=== PATIENT | female | born 1990 | race Caucasian/White ===

== ENCOUNTER 2016-11-26 09:57 | Emergency (ER) | payer OTHER ==
[~2016-11-26] VITALS: Ht 154.9 cm; Wt 89.9 kg
[~2016-11-26 09:57] MED LIST: CIPR-255 PO; EFFSR150 PO; NORGTAB50 PO
[2016-11-26 10:00] VITALS: TEMP 37.3; Ht 154.9 cm; Wt 89.9 kg
[2016-11-26] MEDS ORDERED: SODIUM CHLORIDE 0.9% 1000ML 1,000 ML IV STA (10:29)
--- NOTE | 2016-11-26 10:38 | EMERGENCY ROOM VISIT NOTE ---
History Report prepared by Radha: Dusty Godinez Under the Supervision of: Dr. Jennifer Scherer D.O. First contact with patient: 10:03 Chief Complaint: VOMITING Stated Complaint: 6 WEEKS ,MIGRAINE,DIZZINESS,VOMITING Nursing Triage Summary: Pt states, "I just found out that I am . I was at work and got really dizzy. I threw up. It feels like I have a migraine, but I am not sensitive to light. I have a lot of head pressure. I went to the bathroom and have bright red vaginal bleeding. It's not spotting, but it's not normal flow either. I threw up again." Pt reports cramping "like period cramps for the past couple days, on and off." History of Present Illness The patient is a 26 year old gravid female who presents to the Emergency Room with complaints of recurrent vomiting that started today. The patient has been feeling nauseous for several days without vomiting. Today at work she became dizzy and lightheaded prior to vomiting. She had multiple episodes of vomiting today. The patient has had pelvic cramping for several days the resembles menstrual cramps. The pain does radiate to the back. The patient noticed bright- red blood on the toilet paper after urinating earlier today. There was no blood mixed in with the urine. She has not noticed bleeding since and she does not relate the bleeding to her period. The patient has experienced chills after vomiting. Her stools have been loose lately. She denies any recent fevers or blood in her stools. The patient found out she was five days ago via home test, which was confirmed by Urgent Care. She started vitamins. LNMP was October 14. The patient did have some abnormally light bleeding on October 27. P:1 A:2. The patient has a prescription for Zofran. She denies abnormally heavy lifting or strenuous activity. No recent intercourse. Patient stopped taking Effexor when she found out she was . She is scheduled to see her PCP this coming week. Source of History: patient Onset: today Position: other (GI) Quality: other (vomiting) Timing: other (persistent) Associated Symptoms: + chills, + nausea, + abdominal pain, + back pain, + diarrhea (loose), No fevers, No melena, No hematochezia Note: + vaginal bleeding Review of Systems See HPI for pertinent positives & negatives. A total of 10 systems reviewed and were otherwise negative. Past Medical & Surgical Medical Problems: (1) Anxiety (2) Depression Surgical Problems: (1) History of adenoidectomy (2) History of appendectomy (3) History of cholecystectomy Family History Patient reports no known family medical history. Social History Smoking Status: Never Smoker Alcohol Use: none Marital Status: single Housing Status: lives with family Occupation Status: student Current/Historical Medications Scheduled Ondasetron Odt (Zofran Odt), 4 MG SL Q6H Vit W/ Ferrous Fumara (), 1 TAB PO DAILY Allergies Coded Allergies: Sulfa Drugs (Verified Allergy, Severe, ANAPHYLAXIS, 05/21/16) Amoxicillin (Verified Allergy, Unknown, UNKNOWN, 05/21/16) Mustard Seed (Unverified Allergy, Unknown, HIVES, 05/21/16) Physical Exam Vital Signs Date Time Temp Pulse Resp B/P (MAP) Pulse Ox O2 Delivery O2 Flow Rate FiO2 11/26/16 13:11 76 18 126/70 97 11/26/16 11:25 80 18 103/69 100 Room Air 11/26/16 10:00 37.3 87 18 115/77 99 Room Air Physical Exam GENERAL: alert, well appearing, well nourished, no distress, non-toxic EYE EXAM: normal conjunctiva. OROPHARYNX: no exudate, no erythema, lips, buccal mucosa, and tongue normal and mucous membranes are moist NECK: supple, no nuchal rigidity, no adenopathy, non-tender LUNGS: Clear to auscultation. Normal chest wall mechanics HEART: no murmurs, S1 normal and S2 normal ABDOMEN: abdomen soft, mild central suprapubic tenderness, normo-active bowel sounds, no masses, no rebound or guarding. BACK: Back is symmetrical on inspection and there is no deformity, no midline tenderness, no CVA tenderness. SKIN: no rashes and no bruising UPPER EXTREMITIES: upper extremities are grossly normal. LOWER EXTREMITIES: No pitting edema. NEURO EXAM: Normal sensorium, cranial nerves II-XII grossly intact, normal speech, no gross weakness of arms, no gross weakness of legs. Gross sensation intact. PELVIC: Cervix is high and closed, no blood in vaginal vault, no cervical motion tenderness, no adnexal tenderness. (Performed in presence of female nurse channel account manager). Medical Decision & Procedures ER Provider Diagnostic Interpretation: Radiology results have been interpreted by the radiologist and reviewed by me. ULTRASOUND OF THE PELVIS CLINICAL HISTORY: Vaginal bleeding. Cramping. Reportedly . COMPARISON STUDY: Pelvic CT dated 10/27/2009. TECHNIQUE: Real-time, grayscale, and color flow sonography of the pelvis is performed both transabdominally and endovaginally. Images are reviewed in the transverse and longitudinal planes. FINDINGS: Uterus: The uterus is normal in size and echotexture, measuring 8.0 x 4.2 x 5.8 cm. Endometrium: Tiny cystic foci are suggested within the endometrium. The endometrium is top normal in thickness measuring up to 1.2 cm. Ovaries: The ovaries are normal in size and morphology. The right ovary measures 3.8 x 2.0 x 1.6 cm and the left ovary measures 4.1 x 1.3 x 2.7 cm. There are tiny ovarian follicles. Normal Doppler waveforms are shown within both ovaries. Pelvis: There is no free fluid in the cul-de-sac. No concerning adnexal lesion is seen. IMPRESSION: 1. No intrauterine gestation is identified. This could simply reflect an intrauterine gestation that is too small to visualize or a missed . Although there is no concerning adnexal lesion identified, in the setting of a positive test without a confirmed intrauterine gestation ectopic would be impossible to exclude. Close clinical, laboratory, and sonographic follow-up is recommended. 2. The ovaries are normal in appearance. Electronically signed by: Oscar Eduardo M.D. 11/26/2016 12:03 PM Dictated Date/Time: 11/26/2016 11:59 AM Laboratory Results 11/26/16 10:40 Red Blood Count 4.46, Mean Corpuscular Volume 84.5, Mean Corpuscular Hemoglobin 29.4, Mean Corpuscular Hemoglobin Concent 34.7, Mean Platelet Volume 10.3, Neutrophils (%) (Auto) 58.6, Lymphocytes (%) (Auto) 34.5, Monocytes (%) (Auto) 6.7, Eosinophils (%) (Auto) 0.0, Basophils (%) (Auto) 0.0, Neutrophils # (Auto) 3.39, Lymphocytes # (Auto) 2.00, Monocytes # (Auto) 0.39, Eosinophils # (Auto) 0.00, Basophils # (Auto) 0.00 11/26/16 10:40 Test 11/26/16 10:40 11/26/16 10:45 White Blood Count 5.79 K/uL (4.8-10.8) Red Blood Count 4.46 M/uL (4.2-5.4) Hemoglobin 13.1 g/dL (12.0-16.0) Hematocrit 37.7 % (37-47) Mean Corpuscular Volume 84.5 fL (80-100) Mean Corpuscular Hemoglobin 29.4 pg (25-34) Mean Corpuscular Hemoglobin Concent 34.7 g/dl (32-36) Platelet Count 264 K/uL (130-400) Mean Platelet Volume 10.3 fL (7.4-10.4) Neutrophils (%) (Auto) 58.6 % Lymphocytes (%) (Auto) 34.5 % Monocytes (%) (Auto) 6.7 % Eosinophils (%) (Auto) 0.0 % Basophils (%) (Auto) 0.0 % Neutrophils # (Auto) 3.39 K/uL (1.4-6.5) Lymphocytes # (Auto) 2.00 K/uL (1.2-3.4) Monocytes # (Auto) 0.39 K/uL (0.11-0.59) Eosinophils # (Auto) 0.00 K/uL (0-0.5) Basophils # (Auto) 0.00 K/uL (0-0.2) RDW Standard Deviation 39.6 fL (36.4-46.3) RDW Coefficient of Variation 12.9 % (11.5-14.5) Immature Granulocyte % (Auto) 0.2 % Immature Granulocyte # (Auto) 0.01 K/uL (0.00-0.02) Anion Gap 7.0 mmol/L (3-11) Est Creatinine Clear Calc Drug Dose 114.9 ml/min Estimated GFR () 125.3 Estimated GFR (Non- 108.1 BUN/Creatinine Ratio 12.3 (10-20) Calcium Level 8.4 mg/dl (8.5-10.1) Human Chorionic Gonadotropin, Quant 140 mIU/mL Urine Color YELLOW Urine Appearance CLEAR (CLEAR) Urine pH 6.5 (4.5-7.5) Urine Specific [place] 1.016 (1.000-1.030) Urine Protein NEG (NEG) Urine Glucose (UA) NEG (NEG) Urine Ketones NEG (NEG) Urine Occult Blood NEG (NEG) Urine Nitrite NEG (NEG) Urine Bilirubin NEG (NEG) Urine Urobilinogen NEG (NEG) Urine Leukocyte Esterase NEG (NEG) Laboratory results per my review. Medications Administered Medications (Trade) Dose Ordered Sig/Emil Route Start Time Stop Time Status Last Admin Dose Admin Sodium Chloride 1,000 ml @ 999 mls/hr Q1H1M STAT IV 11/26/16 10:29 11/26/16 11:29 DC 11/26/16 10:29 999 MLS/HR Acetaminophen (Tylenol Tab) 1,000 mg NOW STAT PO 11/26/16 11:07 11/26/16 11:08 DC 11/26/16 11:23 1,000 MG Ondansetron HCl (Zofran Inj) 4 mg NOW STAT IV 11/26/16 11:07 11/26/16 11:08 DC 11/26/16 11:22 4 MG ED Course 1020: The patient was evaluated in room A12b. A complete history and physical exam was performed. 1029: NSS 1000 ml @ 999 mls/hr. 1107: Zofran 4 mg IV, Tylenol 1000 mg PO. 1233: Updated the patient. Her pain is better. She has only noticed blood when she wipes. 1255: Pelvic examination performed. Please see physical exam section. 1305: Discussed the discharge instructions with her. She verbalized understanding and agreement. The patient is ready for discharge. Medical Decision Differential diagnosis: Etiologies such as threatened ab, ectopic , dysfunction uterine bleeding, bleeding dyscrasia, trauma, infection, as well as others were entertained. Blood pressure screening: Patient was found to have normal blood pressure on screening and does not require follow-up. Medication Reconciliation: I attest that I have personally reviewed the patient' s current medication list. Pt well appearing here, not orthostatic, very low HCG and inconsistent for dates based on LMP. Pt with hx of spontaneous ab and aware that her bleeding/ cramping could be related to this again. No need for rhogam, stable H/H. Discussed with pt close f/u for repeat hcg and call to imaging manager for sooner appt to f/u hcg this . Discussed sx to watch/return for, she verbalized understanding and was agreeable with plan. No continued bleeding in ER, no vomiting, pain improved with IVF and tylenol. Pt aware of all results. Impression Primary Impression: Threatened Additional Impressions: Vaginal bleeding before 22 weeks gestation Scribe Attestation The scribe's documentation has been prepared under my direction and personally reviewed by me in its entirety. I confirm that the note above accurately reflects all work, treatment, procedures, and medical decision making performed by me. Departure Information Dispostion Home / Self-Care Prescriptions Ondasetron Odt (ZOFRAN ODT) 4 Mg Tab 4 MG SL Q6H for Nausea, #20 TAB Prov: Jennifer Scherer, 11/26/16 Referrals Jennifer. Miramontes E. PA-C (PCP) Forms HOME CARE DOCUMENTATION FORM, IMPORTANT VISIT INFORMATION, Work Instructions Patient Instructions [facility] Additional Instructions Please keep your appointment with your family doctor for this week, but call and follow-up with RN MANAGED CARE this week as well. You need to have a repeat hormone level done in 48-72 hours. If you develop any increased bleeding, increased cramping or pain, develop dizziness, vomiting, fevers, or you have any other new or concerning symptoms, please return the emergency room. Please avoid any heavy lifting or moving or stiffness activity, drink plenty of water, you may use Tylenol for pain, and continue using your Zofran for any associated nausea. Problem Qualifiers Additional Impressions: Weeks of gestation: less than 8 weeks Qualified Codes: Z3A.01 - Less than 8 weeks gestation of
[2016-11-26 10:53] LABS: COMPLETE YES; HEMATOCRIT 37.7 % (37-47); IG% 0.2 %; LYMPH % 34.5 %; MEAN CELL VOLUME 84.5 fL (80-100); MEAN CORPUSCULAR HEMOGLOBIN 29.4 pg (25-34); MEAN CORPUSCULAR HGB CONC 34.7 g/dl (32-36); MEAN PLATELET VOLUME 10.3 fL (7.4-10.4); MONO % 6.7 %; NEUT % 58.6 %; PLATELET COUNT 264 K/uL (130-400); RED BLOOD COUNT 4.46 M/uL (4.2-5.4); WHITE BLOOD COUNT 5.79 K/uL (4.8-10.8)
[2016-11-26] MEDS ORDERED: PREN1TAB29 PO (10:53)
[2016-11-26 11:05] LABS: URINE APPEARANCE CLEAR (CLEAR); URINE BILIRUBIN NEG (NEG); URINE COLOR YELLOW; URINE NITRITE NEG (NEG); URINE PH 6.5 (4.5-7.5); URINE SPECIFIC GRAVITY 1.016 (1.000-1.030); UROBILINOGEN NEG (NEG); ZZUR CULT IF INDIC CLEAN CATCH NO
[2016-11-26] MEDS ORDERED: ACETAMINOPHEN 500 MG TAB PO STA (11:07)
[2016-11-26] MEDS ORDERED: ONDANSETRON INJ 2 MG/ML 2 ML VIAL IV STA (11:07)
[2016-11-26 11:09] LABS: MANUAL MICROSCOPIC REQUIRED? NO; REVIEW REQ? NO
[2016-11-26 11:12] LABS: BUN/CREATININE RATIO 12.3 (10-20); CALCIUM 8.4 mg/dl (8.5-10.1); CREATININE 0.77 mg/dl (0.60-1.20); POTASSIUM 3.8 mmol/L (3.5-5.1)
--- NOTE | 2016-11-26 12:05 | DIAGNOSTIC IMAGING REPORT ---
ULTRASOUND OF THE PELVIS CLINICAL HISTORY: Vaginal bleeding. Cramping. Reportedly . COMPARISON STUDY: Pelvic CT dated 10/27/2009. TECHNIQUE: Real-time, grayscale, and color flow sonography of the pelvis is performed both transabdominally and endovaginally. Images are reviewed in the transverse and longitudinal planes. FINDINGS: Uterus: The uterus is normal in size and echotexture, measuring 8.0 x 4.2 x 5.8 cm. Endometrium: Tiny cystic foci are suggested within the endometrium. The endometrium is top normal in thickness measuring up to 1.2 cm. Ovaries: The ovaries are normal in size and morphology. The right ovary measures 3.8 x 2.0 x 1.6 cm and the left ovary measures 4.1 x 1.3 x 2.7 cm. There are tiny ovarian follicles. Normal Doppler waveforms are shown within both ovaries. Pelvis: There is no free fluid in the cul-de-sac. No concerning adnexal lesion is seen. IMPRESSION: 1. No intrauterine gestation is identified. This could simply reflect an intrauterine gestation that is too small to visualize or a missed . Although there is no concerning adnexal lesion identified, in the setting of a positive test without a confirmed intrauterine gestation ectopic would be impossible to exclude. Close clinical, laboratory, and sonographic follow-up is recommended. 2. The ovaries are normal in appearance. Electronically signed by: Oscar Eduardo M.D. 11/26/2016 12:03 PM Dictated Date/Time: 11/26/2016 11:59 AM
[2016-11-26] MEDS ORDERED: ONDA4TAB10 SL (13:09)
[2016-11-26 13:11] VITALS: BP 126/70; PULSE 76; O2SAT 97
== END 2016-11-26 13:12 | disposition home or self-care (01) ==
LOC: C.EDB 09:59 → C.EDA 13:12
DX: O20.0 Threatened abortion (principal); Z3A.01 Less than 8 weeks gestation of pregnancy; O99.341 Other mental disorders complicating pregnancy, first trimester; F41.9 Anxiety disorder, unspecified; F32.9 Major depressive disorder, single episode, unspecified; Z79.899 Other long term (current) drug therapy

== ENCOUNTER → 2016-11-28 | Outpatient (CLI) | payer OTHER ==
[~2016-11-28] MED LIST changes: +CEPH-571 PO; -CIPR-255 PO; -EFFSR150 PO; -NORGTAB50 PO; +ONDA4TAB10 SL; +PREN1TAB29 PO
== END | disposition home or self-care (01) ==
LOC: C.LAB 10:42
PROVIDERS: ATTEND Obstetrics & Gynecology
DX: O20.0 Threatened abortion (principal)

== ENCOUNTER → 2016-12-11 | Outpatient (CLI) | payer OTHER | END | disposition home or self-care (01) | LOC: C.LAB 13:50 | PROVIDERS: ATTEND Obstetrics & Gynecology | DX: O02.1 Missed abortion (principal) ==

== ENCOUNTER 2017-03-22 09:31 | Emergency (ER) | payer OTHER ==
[~2017-03-22] VITALS: Ht 152.4 cm; Wt 84.4 kg
[~2017-03-22 09:31] MED LIST changes: -CEPH-571 PO
[2017-03-22 09:36] VITALS: TEMP 36.8; Ht 152.4 cm; Wt 84.4 kg
--- NOTE | 2017-03-22 10:46 | EMERGENCY ROOM VISIT NOTE ---
History Report prepared by Radha: eTjinder Matthews Under the Supervision of: Dr. Jennifer Scherer D.O. First contact with patient: 10:06 Chief Complaint: BACK PAIN Stated Complaint: SEVERE BACK PAIN, HEAVY BLEEDING/CRAMPING/VOMITING History of Present Illness The patient is a 26 year old female who presents to the Emergency Room with complaints of worsening back pain that started 3 nights ago. She says that she was told that she pulled a muscle in her back a month ago, and has had back pain for a month now. The patient says that the pain is worse on the left side and the middle. She notes that she gets some numbness and tingling across the top of her buttock when laying down. The patient was given Naproxen and a muscle relaxer by her doctor, and has been taking those medications whenever the pain gets really bad. She says that 3 nights ago, she had worsening back pain and she could not sleep due to the pain. The patient states that she took the medications, and went back to sleep, but she woke up the next morning with the "worst period ever", with very heavy bleeding. She notes that the period was a couple days early, but the bleeding weened up a bit during that day. The patient adds that she still has been having the back pain, and her abdominal cramping for the period has been much worse than her normal period cramping. She notes that the cramping almost moves her to tears, and is worse upon waking in the morning. The patient says that if she lays still for too long, and then gets up to move, she has worsened pain. She states that the abdominal pain has been intermittent, but back pain has been constant. The patient says that she noticed a heavier flow last night, and felt sick. She notes that she has been feeling nauseous for 2 days, and that is not usually associated with her period. The patient adds that she felt feverish last night, and tried to eat last night but vomited it all up. She notes that it has been harder to have a bowel movement, and not much is there, and she has not had any changes in her diet recently. The patient says that she has been trying to keep up with her fluids but has not been urinating as much as normal. She has been taking Tylenol , Aleve, and Motrin. 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 She had a miscarriage in November, and ever since then her periods have been on time and normal. She notes that she had pre-cancerous cells in her cervix in high school. She adds that last week, she had some episodes of sharp chest pain. Source of History: patient Onset: 3 nights ago Position: back (worse in middle and left) Symptom Intensity: so bad that cannot sleep sometimes Timing: worsening Modifying Factors (Worsening): movement Associated Symptoms: + nausea, + vomiting, + abdominal pain, + urinary symptoms (decreased frequency), + numbness (and tingling above buttock) Note: Associated symptoms: Episodes of heavier menstrual bleeding than normal. [place] feverish last night. Harder to have bowel movement lately. Review of Systems See HPI for pertinent positives & negatives. A total of 10 systems reviewed and were otherwise negative. Past Medical & Surgical Medical Problems: (1) Anxiety (2) Depression Surgical Problems: (1) History of adenoidectomy (2) History of appendectomy (3) History of cholecystectomy Family History Patient reports no known family medical history. Social History Smoking Status: Former Smoker Alcohol Use: none Marital Status: single Housing Status: lives with family Occupation Status: student Current/Historical Medications Scheduled Cephalexin (Keflex), 1 CAP PO BID Allergies Coded Allergies: Sulfa Drugs (Verified Allergy, Severe, ANAPHYLAXIS, 05/21/16) Amoxicillin (Verified Allergy, Unknown, UNKNOWN, 05/21/16) Mustard Seed (Unverified Allergy, Unknown, HIVES, 05/21/16) Physical Exam Vital Signs Date Time Temp Pulse Resp B/P (MAP) Pulse Ox O2 Delivery O2 Flow Rate FiO2 03/22/17 16:55 57 18 104/55 100 Room Air 03/22/17 15:28 60 18 101/52 98 Room Air 03/22/17 13:18 78 18 107/61 100 Room Air 03/22/17 11:11 61 16 98/57 99 Room Air 03/22/17 09:36 36.8 78 18 113/78 95 Room Air Physical Exam GENERAL: alert, anxious appearing, well nourished, no distress, non-toxic EYE EXAM: normal conjunctiva, PERRL and EOM's grossly intact OROPHARYNX: no exudate, no erythema, lips, buccal mucosa, and tongue normal and mucous membranes are moist NECK: supple, no nuchal rigidity, no adenopathy, non-tender LUNGS: Clear to auscultation. Normal chest wall mechanics HEART: no murmurs, S1 normal and S2 normal ABDOMEN: abdomen soft, non-tender, normo-active bowel sounds, no masses, no rebound or guarding. BACK: Back is symmetrical on inspection and there is no deformity, no midline tenderness, no CVA tenderness. SKIN: no rashes and no bruising UPPER EXTREMITIES: upper extremities are grossly normal. LOWER EXTREMITIES: No pitting edema. NEURO EXAM: Normal sensorium, cranial nerves II-XII grossly intact, normal speech, no gross weakness of arms, no gross weakness of legs. No drift. Finger to nose intact. Gross sensation intact. Medical Decision & Procedures ER Provider Diagnostic Interpretation: US:Per my review, radiologist interpretation. (RENAL)RETROPERITONEA COMP HISTORY: Pain. Nausea. back pain, uti COMPARISON: 11/26/2016 FINDINGS: Right kidney: Maximum dimension 12.0 cm. Extrarenal pelvis. No evidence for hydronephrosis. Normal corticomedullary differentiation and cortical thickness. Left kidney: Maximum dimension 12.7 cm. No evidence for hydronephrosis. Normal corticomedullary differentiation and cortical thickness. Bladder: No bladder wall thickening. The bilateral ureteral jets were identified. IMPRESSION: Negative study The above report was generated using voice recognition software. It may contain grammatical, syntax or spelling errors. Electronically signed by: Fransisco Amezquita M.D. 03/22/2017 2:53 PM Dictated Date/Time: 03/22/2017 2:52 PM Laboratory Results 03/22/17 11:02 Red Blood Count 4.45, Mean Corpuscular Volume 83.8, Mean Corpuscular Hemoglobin 29.9, Mean Corpuscular Hemoglobin Concent 35.7, Mean Platelet Volume 10.7, Neutrophils (%) (Auto) 62.0, Lymphocytes (%) (Auto) 31.3, Monocytes (%) (Auto) 6.0, Eosinophils (%) (Auto) 0.3, Basophils (%) (Auto) 0.2, Neutrophils # (Auto) 3.95, Lymphocytes # (Auto) 1.99, Monocytes # (Auto) 0.38, Eosinophils # (Auto) 0.02, Basophils # (Auto) 0.01 03/22/17 11:02 Test 03/22/17 10:20 03/22/17 11:02 Urine Color RED Urine Appearance SL CLOUDY (CLEAR) Urine pH 6.5 (4.5-7.5) Urine Specific [place] 1.025 (1.000-1.030) Urine Protein 2+ (NEG) Urine Glucose (UA) NEG (NEG) Urine Ketones NEG (NEG) Urine Occult Blood 3+ (NEG) Urine Nitrite NEG (NEG) Urine Bilirubin NEG (NEG) Urine Urobilinogen NEG (NEG) Urine Leukocyte Esterase NEG (NEG) Urine RBC >30 /hpf (0-4) Urine WBC 5-10 /hpf (0-5) Urine Epithelial Cells 10-20 /lpf (0-5) Urine Bacteria 2+ (NEG) Urine Hyaline Casts 1-5 /lpf (0-5) Urine Mucus PRESENT (NONE PRSENT) White Blood Count 6.36 K/uL (4.8-10.8) Red Blood Count 4.45 M/uL (4.2-5.4) Hemoglobin 13.3 g/dL (12.0-16.0) Hematocrit 37.3 % (37-47) Mean Corpuscular Volume 83.8 fL (80-100) Mean Corpuscular Hemoglobin 29.9 pg (25-34) Mean Corpuscular Hemoglobin Concent 35.7 g/dl (32-36) Platelet Count 232 K/uL (130-400) Mean Platelet Volume 10.7 fL (7.4-10.4) Neutrophils (%) (Auto) 62.0 % Lymphocytes (%) (Auto) 31.3 % Monocytes (%) (Auto) 6.0 % Eosinophils (%) (Auto) 0.3 % Basophils (%) (Auto) 0.2 % Neutrophils # (Auto) 3.95 K/uL (1.4-6.5) Lymphocytes # (Auto) 1.99 K/uL (1.2-3.4) Monocytes # (Auto) 0.38 K/uL (0.11-0.59) Eosinophils # (Auto) 0.02 K/uL (0-0.5) Basophils # (Auto) 0.01 K/uL (0-0.2) RDW Standard Deviation 39.6 fL (36.4-46.3) RDW Coefficient of Variation 13.0 % (11.5-14.5) Immature Granulocyte % (Auto) 0.2 % Immature Granulocyte # (Auto) 0.01 K/uL (0.00-0.02) Anion Gap 7.0 mmol/L (3-11) Est Creatinine Clear Calc Drug Dose 102.0 ml/min Estimated GFR () 116.1 Estimated GFR (Non- 100.2 BUN/Creatinine Ratio 9.1 (10-20) Calcium Level 8.4 mg/dl (8.5-10.1) Human Chorionic Gonadotropin, Qual NEG (NEG) Laboratory results per my review. Medications Administered Medications (Trade) Dose Ordered Sig/Emil Route Start Time Stop Time Status Last Admin Dose Admin Ketorolac Tromethamine (Toradol Inj) 30 mg NOW STAT IV 03/22/17 10:51 03/22/17 10:53 DC 03/22/17 11:10 30 MG Sodium Chloride 1,000 ml @ 999 mls/hr Q1H1M STAT IV 03/22/17 10:51 03/22/17 11:51 DC 03/22/17 11:09 999 MLS/HR Lidocaine (Lidoderm Patch 5%) 1 patch NOW STAT TD 03/22/17 10:51 03/22/17 10:53 DC 03/22/17 11:11 1 PATCH Ceftriaxone Sodium (Rocephin Inj) 1 gm NOW STAT IV 03/22/17 13:41 03/22/17 13:42 DC 03/22/17 14:02 1 GM Tramadol HCl (Ultram Home Pack) 1 homepack UD ONCE PO 03/22/17 16:45 03/22/17 16:46 DC 03/22/17 16:54 1 HOMEPACK Ketorolac Tromethamine (Toradol Inj) 30 mg NOW STAT IV 03/22/17 16:32 03/22/17 16:33 DC 03/22/17 16:53 30 MG ED Course 1032: The patient was evaluated in room B3B. A complete history and physical exam was performed. 1051: Ordered Lidoderm Patch 5% 1 patch TD, NSS 1000 ml @ 999 mls/hr IV, Toradol Inj 30 mg IV. 1341: Ordered Rocephin Inj 1 gm IV. 1343: I reevaluated and updated the patient. 1507: The patient is at ultrasound. 1620: Upon reevaluation, the patient is feeling better. I discussed the findings and the treatment plan with the patient. She verbalizes agreement and understanding. She will be discharged home. 1645: Ordered Ultram Home Pack 1 homepack PO. Medical Decision Differential diagnoses includes but is not limited to gastritis, peptic ulcer disease, GERD, gallbladder disease, pancreatitis, small bowel obstruction, acute coronary syndrome, pericarditis, ischemic bowel, irritable bowel disease, irritable bowel syndrome, appendicitis, diverticulitis, malignancy, hernia, urinary tract infection, torsion, /ectopic (if female), perforation, trauma, infectious. Back pain more likely musculoskeletal, doubt acute spinal pathology including cauda equina, acute disc herniation, discitis, epidural abscess or hematoma. Doubt pyelonephritis given lack of other physical exam findings and reassuring labs. Patient with possible UTI, although some skewing of analysis due to recent cessation of menstrual cycle. Increased suprapubic and lower abdominal discomfort could be related to early UTI as well. Doubt bacteremia/sepsis. Patient with no other history of [employer]IST[employer] pathology. Patient did have a recent pelvic ultrasound which was reported to her as normal following a recent miscarriage. No known history of uterine fibroids, endometriosis, ovarian cysts. Patient's story not consistent with torsion, no new partners to suggest STD or PID. Possible atypical menstrual cycle with menorrhagia and worsening dysmenorrhea. Patient improved here phone IV fluids and Toradol. Lidoderm patch and also. Discussed with patient follow-up with family doctor, follow up with [employer], symptoms to watch and return for, she verbalized understanding and was agreeable with plan. Medication Reconcilliation Current Medication List: was personally reviewed by me Blood Pressure Screening Patient's blood pressure: Normal blood pressure Impression Primary Impression: Abdominal pain Additional Impressions: Back pain UTI (urinary tract infection) Scribe Attestation The scribe's documentation has been prepared under my direction and personally reviewed by me in its entirety. I confirm that the note above accurately reflects all work, treatment, procedures, and medical decision making performed by me. Departure Information Dispostion Home / Self-Care Prescriptions Cephalexin (KEFLEX) 500 Mg Cap 1 CAP PO BID for 7 Days, #14 CAP Prov: Jennifer Scherer, 03/22/17 Referrals No Doctor, Assigned (PCP) Patient Instructions My [facility] Additional Instructions Please take the antibiotics as prescribed. Please call and follow-up with your family doctor. Please drink plenty of water. Please avoid any heavy lifting until you are feeling better. You may continue using the antiinflammatories and the muscle relaxer as you have previously been prescribed. You may also use the over the counter pain patch which is applied to the area daily as needed for pain. Problem Qualifiers Primary Impression: Abdominal pain Abdominal location: lower abdomen, unspecified Qualified Codes: R10.30 - Lower abdominal pain, unspecified Additional Impressions: Back pain Back pain location: low back pain Chronicity: acute Back pain laterality: left Sciatica presence: without sciatica Qualified Codes: M54.5 - Low back pain UTI (urinary tract infection) Urinary tract infection type: acute cystitis Hematuria presence: with hematuria Qualified Codes: N30.01 - Acute cystitis with hematuria
[2017-03-22] MEDS ORDERED: LIDODERM (LIDOCAINE) PATCH 5% TD STA (10:51)
[2017-03-22] MEDS ORDERED: SODIUM CHLORIDE 0.9% 1000ML 1,000 ML IV STA (10:51)
[2017-03-22] MEDS ORDERED: KETOROLAC TROMETHAMINE 30 MG/ML VIAL IV STA ×2 (10:51→16:32)
[2017-03-22 11:14] LABS: MANUAL MICROSCOPIC REQUIRED? YES; URINE APPEARANCE SL CLOUDY (CLEAR); URINE COLOR RED; URINE NITRITE NEG (NEG); URINE PH 6.5 (4.5-7.5); URINE SPECIFIC GRAVITY 1.025 (1.000-1.030); UROBILINOGEN NEG (NEG)
[2017-03-22 11:18] LABS: REVIEW REQ? NO; URINE BILIRUBIN NEG (NEG)
[2017-03-22 11:19] LABS: URINE RBC >30 /hpf (0-4)
[2017-03-22 11:23] LABS: BASO % 0.2 %; BASO ABS # 0.01 K/uL (0-0.2); COMPLETE YES; EOS % 0.3 %; HEMATOCRIT 37.3 % (37-47); IG% 0.2 %; LYMPH % 31.3 %; LYMPH ABS # 1.99 K/uL (1.2-3.4); MEAN CELL VOLUME 83.8 fL (80-100); MEAN CORPUSCULAR HEMOGLOBIN 29.9 pg (25-34); MEAN CORPUSCULAR HGB CONC 35.7 g/dl (32-36); MEAN PLATELET VOLUME 10.7 fL (7.4-10.4); PLATELET COUNT 232 K/uL (130-400); RED BLOOD COUNT 4.45 M/uL (4.2-5.4); WHITE BLOOD COUNT 6.36 K/uL (4.8-10.8)
[2017-03-22 11:24] LABS: URINE MUCUS PRESENT (NONE PRSENT)
[2017-03-22 11:26] LABS: URINE BACTERIA 2+ (NEG)
[2017-03-22 11:28] LABS: ZZUR CULT IF INDIC CLEAN CATCH YES
[2017-03-22 11:41] LABS: BUN/CREATININE RATIO 9.1 (10-20); CALCIUM 8.4 mg/dl (8.5-10.1); CREATININE 0.82 mg/dl (0.60-1.20); POTASSIUM 3.8 mmol/L (3.5-5.1)
[2017-03-22 11:45] LABS: PREG INTERNAL NEGATIVE QC NEG CLEAR BACKGROUND; PREG INTERNAL POSITIVE QC POS CONTROL LINE
[2017-03-22] MEDS ORDERED: CEFTRIAXONE SOD INJ 1 GM ADDVIAL IV STA (13:41)
--- NOTE | 2017-03-22 14:55 | DIAGNOSTIC IMAGING REPORT ---
(RENAL)RETROPERITONEA COMP HISTORY: Pain. Nausea. back pain, uti COMPARISON: 11/26/2016 FINDINGS: Right kidney: Maximum dimension 12.0 cm. Extrarenal pelvis. No evidence for hydronephrosis. Normal corticomedullary differentiation and cortical thickness. Left kidney: Maximum dimension 12.7 cm. No evidence for hydronephrosis. Normal corticomedullary differentiation and cortical thickness. Bladder: No bladder wall thickening. The bilateral ureteral jets were identified. IMPRESSION: Negative study The above report was generated using voice recognition software. It may contain grammatical, syntax or spelling errors. Electronically signed by: Fransisco Amezquita M.D. 03/22/2017 2:53 PM Dictated Date/Time: 03/22/2017 2:52 PM
[2017-03-22] MEDS ORDERED: CEPH-571 PO (16:31)
[2017-03-22] MEDS ORDERED: TRAMADOL HCL 50 MG HOME PACK PO ONE (16:45)
[2017-03-22 16:55] VITALS: BP 104/55; PULSE 57; O2SAT 100
== END 2017-03-22 17:24 | disposition home or self-care (01) ==
LOC: C.EDB 09:32
DX: R10.30 Lower abdominal pain, unspecified (principal); M54.5 Low back pain; N30.01 Acute cystitis with hematuria; F41.9 Anxiety disorder, unspecified; F32.9 Major depressive disorder, single episode, unspecified; Z87.891 Personal history of nicotine dependence

== ENCOUNTER 2017-09-28 16:39 | Emergency (ER) | payer OTHER ==
[~2017-09-28] VITALS: Ht 152.4 cm; Wt 86.9 kg
[2017-09-28 16:58] VITALS: TEMP 36.7; Ht 152.4 cm; Wt 86.9 kg
[2017-09-28] MEDS ORDERED: DIPHTHERIA/TETANUS/PERTUSSIS 0.5 ML SYR/VIAL IM. ONE (18:00)
--- NOTE | 2017-09-28 18:03 | EMERGENCY ROOM VISIT NOTE ---
History First contact with patient: 17:29 Chief Complaint: LACERATION/CUT (SUT/DERMABOND) Stated Complaint: RT HAND, 2ND DIGIT LACERATION-WC History of Present Illness The patient is a 27 year old female who presents to the Emergency Room with complaints of a cut to her right index finger that occurred at work. 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 She thinks that she cut her right index finger on a piece of bone. The bleeding has stopped. She denies any numbness or tingling. She denies any other injuries. She is unsure of her last tetanus shot. Review of Systems 6 system review negative. Please see pertinent positives in the history of present illness section. Past Medical/Surgical History Medical Problems: (1) Anxiety (2) Depression Surgical Problems: (1) History of adenoidectomy (2) History of appendectomy (3) History of cholecystectomy Family History Patient reports no known family medical history. Social History Smoking Status: Never Smoker Alcohol Use: none Marital Status: single Housing Status: lives with family Occupation Status: student Current/Historical Medications No Active Prescriptions or Reported Meds Physical Exam Vital Signs Date Time Temp Pulse Resp B/P (MAP) Pulse Ox O2 Delivery O2 Flow Rate FiO2 09/28/17 18:29 64 16 131/59 98 09/28/17 16:58 36.7 61 18 144/64 98 Room Air Physical Exam VITALS: Vitals are noted on the nurse's note and reviewed by myself. Vital signs stable. GENERAL: 27-year-old female, in no acute distress, nondiaphoretic, well- developed well-nourished. SKIN: 0.5 cm, non-gaping, superficial laceration noted to the dorsal aspect of the right index finger. No active bleeding. There is no foreign material in the wound. It appears clean. Capillary refill in the fingers less than 2 seconds. Full range of motion HEAD: Normocephalic atraumatic. MUSCULOSKELETAL: Strength 5/5 throughout. NEURO: Patient was alert and oriented to person place and time. Normal sensation to touch. No focal neurological deficits. Medical Decision & Procedures Medications Administered Medications (Trade) Dose Ordered Sig/Emil Route Start Time Stop Time Status Last Admin Dose Admin Diphtheria/ Pertussis/Tetanus Vacc (Adacel Inj) 0.5 ml ONCE ONCE IM. 09/28/17 18:00 09/28/17 18:01 DC 09/28/17 18:24 0.5 ML ED Course The patient was seen and examined The area was thoroughly cleansed with Betadine and rinsed with normal saline She was given a tetanus shot Discharge instructions were reviewed, and she was discharged in good condition Medical Decision Differential diagnosis: Laceration, abrasion this patient is a 27-year-old female that presents to the emergency department with a superficial laceration to the right index finger. It did not require suturing. The wound was thoroughly cleansed. Her tetanus was updated. She was cautioned on signs of infection, and discharged in good condition This chart was completed in part utilizing [employer] Speech Voice Recognition software. Attempts were made to minimize the grammatical errors, random word insertions, pronoun errors and incomplete sentences. Any formal questions or concerns about the content, text or information contained within the body of this dictation should be directly addressed to the provider for clarification. Impression Primary Impression: Laceration Departure Information Dispostion Home / Self-Care Condition GOOD Prescriptions No Active Prescriptions or Reported Meds Referrals Flori Miramontes.Jermaine PA-C (PCP) Patient Instructions My [facility] Additional Instructions Please wash the area twice daily with soap and water. Apply an antibiotic ointment such as Neosporin for the first 3 days. Keep the area covered. After 3 days, it is okay to leave it open to air. Please watch for signs of infection such as redness, swelling, severe pain or fever. Please do not hesitate to return to the emergency department with any new or worsening symptoms. Work Instructions Return To Work: 1 day
[2017-09-28 18:29] VITALS: BP 131/59; PULSE 64; O2SAT 98
== END 2017-09-28 18:30 | disposition home or self-care (01) ==
LOC: C.EDB 16:41 → C.EDD 18:30
DX: S61.210A Laceration without foreign body of right index finger without damage to nail, initial encounter (principal); W45.8XXA Other foreign body or object entering through skin, initial encounter; F41.9 Anxiety disorder, unspecified; F32.9 Major depressive disorder, single episode, unspecified; Z23 Encounter for immunization

== ENCOUNTER 2017-10-05 12:50 | Emergency (ER) | payer OTHER ==
[~2017-10-05] VITALS: Ht 154.9 cm; Wt 87.4 kg
[2017-10-05 12:51] VITALS: TEMP 36.8; Ht 154.9 cm; Wt 87.4 kg
[2017-10-05] MEDS ORDERED: ACETAMINOPHEN 500 MG TAB PO STA (12:59)
[2017-10-05 13:27] LABS: BASO % 0.2 %; BASO ABS # 0.02 K/uL (0-0.2); EOS % 0.7 %; EOS ABS # 0.06 K/uL (0-0.5); HEMATOCRIT 37.4 % (37-47); HEMOGLOBIN 13.5 g/dL (12.0-16.0); IG# 0.01 K/uL (0.00-0.02); LYMPH % 27.8 %; LYMPH ABS # 2.39 K/uL (1.2-3.4); MEAN CELL VOLUME 82.9 fL (80-100); MEAN CORPUSCULAR HEMOGLOBIN 29.9 pg (25-34); MEAN CORPUSCULAR HGB CONC 36.1 g/dl (32-36); MEAN PLATELET VOLUME 10.2 fL (7.4-10.4); MONO % 4.1 %; MONO ABS # 0.35 K/uL (0.11-0.59); NEUT % 67.1 %; NEUT ABS # 5.77 K/uL (1.4-6.5); PLATELET COUNT 308 K/uL (130-400); RED CELL DISTRIBUTION WIDTH CV 12.9 % (11.5-14.5); RED CELL DISTRIBUTION WIDTH SD 38.8 fL (36.4-46.3)
[2017-10-05 13:43] LABS: ALBUMIN 4.2 gm/dl (3.4-5.0); CALCIUM 8.8 mg/dl (8.5-10.1); CREATININE 0.86 mg/dl (0.60-1.20); POTASSIUM 3.4 mmol/L (3.5-5.1)
[2017-10-05 13:47] LABS: TOTAL PROTEIN 7.7 gm/dl (6.4-8.2)
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
[2017-10-05 14:47] VITALS: BP 110/72; PULSE 84; O2SAT 100
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
== END 2017-10-05 15:12 | disposition home or self-care (01) ==
LOC: EDBD 12:50 → C.EDB 12:50
DX: S80.01XA Contusion of right knee, initial encounter (principal); S16.1XXA Strain of muscle, fascia and tendon at neck level, initial encounter; V43.52XA Car driver injured in collision with other type car in traffic accident, initial encounter; E87.6 Hypokalemia; F41.9 Anxiety disorder, unspecified; F32.9 Major depressive disorder, single episode, unspecified; Z90.49 Acquired absence of other specified parts of digestive tract; Z88.2 Allergy status to sulfonamides; Z88.0 Allergy status to penicillin; Z91.018 Allergy to other foods